=== PATIENT | female | born 1990 | race American Indian/Alaskan Native ===

== ENCOUNTER 2020-05-05 19:34 | Emergency (ER) | payer SELFPAY ==
[2020-05-05] MEDS ORDERED: METOCLOPRAMIDE 10 MG TAB PO ONE (20:06)
[2020-05-05] MEDS ORDERED: BUTALB/ACETAMINOPHEN/CAFFEINE TAB PO ONE (20:06)
[2020-05-05] MEDS ORDERED: diphenhydrAMINE 25 MG CAP PO ONE (20:07)
[2020-05-05] MEDS ORDERED: IBUPROFEN 600 MG TAB PO ONE (20:07)
--- NOTE | 2020-05-05 21:04 | Emergency Department Report ---
ED Headache HPI - General Chief Complaint: Headache Stated Complaint: HEADACHE/NAUSEA Time Seen by Provider: 05/05/20 19:58 - History of Present Illness Initial Comments: Patient is a 29-year-old female presents emergency room complaints of a frontal headache that began yesterday. She has associated sinus pressure and fever. She states that she had one episode of vomiting tonight secondary to her headache. She denies any vision changes, neck pain, neck stiffness, numbness, weakness, speech disturbance, gait disturbance, diarrhea, cough, chest pain, shortness of breath, abdominal pain, urinary symptoms. She denies any past medical history. She denies any allergies medications. Last menstrual cycle 04/27/2020. She states that she had these symptoms previously when she had a sinus infection in November 2019. Allergies/Adverse Reactions: Allergies No Known Allergies Allergy (Unverified 05/05/20 20:07) Home Medications: Ambulatory Orders Amoxicillin/Potassium Clav [Augmentin 875-125 Tablet] 1 each PO BID 10 Days #20 tablet 05/05/20 Butalb/Acetaminophen/Caffeine [Fioricet 50-300-40 mg CAP] 1 cap PO Q8HR PRN #12 cap 05/05/20 Fluticasone [Flonase] 1 spray NS QDAY #1 bottle 05/05/20 Ondansetron [Zofran Odt] 4 mg PO Q8HR PRN #10 tab.rapdis 05/05/20 ED Review of Systems ROS: Stated complaint: HEADACHE/NAUSEA Other details as noted in HPI Comment: All other systems reviewed and negative ED Past Medical Hx - Past Medical History Previous Medical History?: No - Surgical History Past Surgical History?: No - Social History Smoking Status: Never Smoker Substance Use Type: None - Medications Home Medications: Home Medications Medication Instructions Recorded Confirmed Last Taken Type Amoxicillin/Potassium Clav 1 each PO BID 10 Days #20 tablet 05/05/20 Unknown Rx [Augmentin 875-125 Tablet] Butalb/Acetaminophen/Caffeine 1 cap PO Q8HR PRN #12 cap 05/05/20 Unknown Rx [Fioricet 50-300-40 mg CAP] Fluticasone [Flonase] 1 spray NS QDAY #1 bottle 05/05/20 Unknown Rx Ondansetron [Zofran Odt] 4 mg PO Q8HR PRN #10 tab.rapdis 05/05/20 Unknown Rx ED Physical Exam - General Limitations: No Limitations General appearance: alert, in no apparent distress - Head Head exam: Present: atraumatic, normocephalic - Eye Eye exam: Present: normal appearance - ENT ENT exam: Present: mucous membranes moist, other (frontal sinus ttp bilaterally, no maxillary sinus ttp) - Neck Neck exam: Present: normal inspection, full ROM. Absent: tenderness, meningismus - Respiratory Respiratory exam: Present: normal lung sounds bilaterally. Absent: respiratory distress, wheezes, rales, rhonchi, stridor, chest wall tenderness, accessory muscle use, decreased breath sounds, prolonged expiratory - Cardiovascular Cardiovascular Exam: Present: regular rate, normal rhythm, normal heart sounds. Absent: systolic murmur, diastolic murmur, rubs, gallop - Neurological Exam Neurological exam: Present: alert, oriented X3, CN II-XII intact, normal gait. Absent: motor sensory deficit - Psychiatric Psychiatric exam: Present: normal affect, normal mood - Skin Skin exam: Present: warm, dry, intact ED Course Vital Signs 05/05/20 05/05/20 05/05/20 19:59 21:11 21:24 Temperature 101.8 F H 100.9 F H Pulse Rate 115 H 96 H Respiratory 18 18 Rate Blood Pressure 152/88 Blood Pressure 147/92 [Left] O2 Sat by Pulse 95 98 Oximetry ED Medical Decision Making - Lab Data Vital Signs 05/05/20 05/05/20 05/05/20 19:59 21:11 21:24 Temperature 101.8 F H 100.9 F H Pulse Rate 115 H 96 H Respiratory 18 18 Rate Blood Pressure 152/88 Blood Pressure 147/92 [Left] O2 Sat by Pulse 95 98 Oximetry - Medical Decision Making Patient is a 29-year-old female presents emergency room complaints of a frontal headache that began yesterday. She has associated sinus pressure and fever. She states that she had one episode of vomiting tonight secondary to her headache. She denies any vision changes, neck pain, neck stiffness, numbness, weakness, speech disturbance, gait disturbance, diarrhea, cough, chest pain, sh ortness of breath, abdominal pain, urinary symptoms. She denies any past medical history. She denies any allergies medications. Last menstrual cycle 04/27/2020. She states that she had these symptoms previously when she had a sinus infection in November 2019. initial vitals with elevated HR and temp which improved upon repeat. on exam pt has bilateral frontal sinus ttp, no neuro deficits, no meningeal signs. pt given medications in the ED. given prescription for fioricet, augmentin, flonase, and zofran. pt is tolerating PO intake without difficulty. advised pt Please take medication as prescribed. Please follow-up with your primary care doctor. Increase your water intake. Please take antibiotics with food. Return to emergency room for any new or worsening symptoms. Critical care attestation.: If time is entered above; I have spent that time in minutes in the direct care of this critically ill patient, excluding procedure time. ED Disposition Clinical Impression: Acute sinusitis Qualifiers: Sinusitis location: frontal Recurrence: non-recurrent Qualified Code(s): J01.10 - Acute frontal sinusitis, unspecified Headache Qualifiers: Headache type: unspecified Headache chronicity pattern: acute headache Intractability: not intractable Qualified Code(s): R51.9 - Headache, unspecified Disposition: TO HOME OR SELFCARE Is pt being admited?: No Does the pt Need Aspirin: No Condition: Stable Instructions: Sinusitis, Adult, [id number] Additional Instructions: Please take medication as prescribed. Please follow-up with your primary care doctor. Increase your water intake. Please take antibiotics with food. Return to emergency room for any new or worsening symptoms. Prescriptions: Amoxicillin/Potassium Clav [Augmentin 875-125 Tablet] 1 each PO BID 10 Days #20 tablet Butalb/Acetaminophen/Caffeine [Fioricet 50-300-40 mg CAP] 1 cap PO Q8HR PRN #12 cap PRN Reason: headache Fluticasone [Flonase] 1 spray NS QDAY #1 bottle Ondansetron [Zofran Odt] 4 mg PO Q8HR PRN #10 tab.rapdis PRN Reason: nausea/vomiting Referrals: LESA SIMON MD [Primary Care Provider] - 2-3 Days MARISSA PERDOMO MD [Staff Physician] - 2-3 Days [facility] [Provider Group] - 2-3 Days Time of Disposition: 21:03 Print Language: NEPALI
[2020-05-05 21:12] VITALS: BP 147/92
== END 2020-05-05 21:32 | disposition home or self-care (01) ==
LOC: ED 19:34
DX: J01.90 Acute sinusitis, unspecified (principal); R51.9 Headache, unspecified; Z79.899 Other long term (current) drug therapy
CPT/HCPCS: 99282